=== PATIENT | female | born 1955 | race Asian ===

== ENCOUNTER 2019-07-16 09:20 | Outpatient (CLI) | payer OTHER | END 2019-07-16 21:40 | disposition home or self-care (01) | LOC: MAMMO 09:20 | DX: Z12.31 Encounter for screening mammogram for malignant neoplasm of breast (principal) ==

== ENCOUNTER 2020-11-27 09:30 | Outpatient (CLI) | payer OTHER | END 2020-11-27 23:17 | disposition home or self-care (01) | LOC: MAMMO 09:30 | PROVIDERS: ATTEND Nurse Practitioner Family | DX: Z12.31 Encounter for screening mammogram for malignant neoplasm of breast (principal) ==

== ENCOUNTER 2021-11-20 10:20 | Outpatient (CLI) | payer OTHER | END 2021-11-20 19:59 | disposition home or self-care (01) | LOC: MAMMO 10:20 | PROVIDERS: ATTEND Nurse Practitioner Family | DX: Z12.31 Encounter for screening mammogram for malignant neoplasm of breast (principal) ==

== ENCOUNTER 2022-11-30 08:02 | Outpatient (CLI) | payer OTHER | END 2022-11-30 19:56 | disposition home or self-care (01) | LOC: MAMMO 08:02 | PROVIDERS: ATTEND Nurse Practitioner Family | DX: Z12.31 Encounter for screening mammogram for malignant neoplasm of breast (principal) ==